=== PATIENT | female | born 1960 | race Caucasian/White ===

== ENCOUNTER 2018-06-13 06:49 | Emergency (ER) | payer OTHER, SELFPAY ==
[2018-06-13 06:55] VITALS: BP 155/77; PULSE 100; RESP 16; TEMP 37; O2SAT 93
--- NOTE | 2018-06-13 07:14 | W.ED.GENAD ---
Discharge Plan Disposition Patient Disposition: HOME Condition: Good Discharge Details Chief Complaint: Orthopedic Clinical Impression: Strain of left biceps Primary Care Provider: Tonio Harris ED Provider: Ryan Thomas Home Meds and New Rx's Prescriptions: Continue multivitamin [Daily Multi-Vitamin] 1 EACH tablet 1 ea PO DAILY Qty: 1 RF: 0 cyanocobalamin (vitamin B-12) [Vitamin B-12] 50 MCG tablet 50 mcg PO DAILY RF: 0 cholecalciferol (vitamin D3) [Vitamin D3] 400 UNIT tablet 400 unit PO DAILY Qty: 1 RF: 0 ascorbic acid (vitamin C) [Vitamin C] 500 MG tablet 500 mg PO BID Qty: 1 RF: 0 acetaminophen [Tylenol] 325 MG tablet 325 mg PO PRN RF: 0 naproxen sodium [Aleve] 220 MG tablet 220 mg PO PRN RF: 0 varenicline [Chantix Continuing Month Box] 1 MG tablet 1 mg PO BID Qty: 60 RF: 2 varenicline [Chantix] 0.5 MG tablet 1 mg PO BID Qty: 42 RF: 0 albuterol sulfate [ProAir HFA] 8.5 GM HFA aerosol inhaler 1 - 2 puff Inhalation Q4H PRN Qty: 1 RF: 2 Discharge Instructions Instructions: Muscle Strain (ED) Additional Instructions: Rest your arm for the next few days. Continue Aleve as before. May take Tylenol 1 g every 6 hours. Use some heat. Follow-up with primary care on Thursday before returning to work if not better. Return to ED for increasing pain, numbness, weakness. Stand Alone Forms: Work Release Referrals: Tonio Harris [Primary Care Provider] - Medical Decision Making Patient appears to have a strain of the left bicep. I do not think she has tendon rupture. She has no bony injury. She only has pain with active range of motion while flexing the elbow against resistance or attempting to bring her arm upwards or backwards. She does not have tenderness anywhere. She is neurovascularly intact distally. She has the ability to flex against resistance with decent strength. I do not think x-rays are warranted. We will give her a few days off from work to rest her arm. Continue Aleve twice a day. Add Tylenol every 6 hours. Follow-up with primary care Thursday prior to going back to work if not better. Return to ED for any worsening pain, numbness, weakness. HPI General Mode of arrival: ambulatory. Date/Time Provider Initiated Documentation: 06/13/18 07:03. Limitations to Documentation: no limitations. Information obtained by: patient. HPI Narrative: Patient is a [id number] female who presents with left arm pain that she developed after shoveling snow a couple of days ago. Does not really bother her a lot depending on what position her arm is in. However, trying to lift things or raise her arm up causes pain in the bicep/elbow area. She has no numbness or tingling distally. She has no chest pain or shortness of breath. If she rests her arm in a certain position, she has no pain whatsoever. 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 Trying to fold laundry all night seems to be exacerbating her pain. She has been taking Aleve. She presents for evaluation this morning after working all night. Related Data Home Medications Medication Instructions Recorded Confirmed ascorbic acid (vitamin C) [Vitamin 500 mg PO BID #1 05/23/15 06/13/18 C] cholecalciferol (vitamin D3) 400 unit PO DAILY #1 05/23/15 06/13/18 [Vitamin D3] cyanocobalamin (vitamin B-12) 50 mcg PO DAILY 05/23/15 06/13/18 [Vitamin B-12] multivitamin [Daily Multi-Vitamin] 1 ea PO DAILY #1 05/23/15 06/13/18 acetaminophen [Tylenol] 325 mg PO PRN 11/21/16 06/13/18 albuterol sulfate [ProAir HFA] 1 - 2 puff INHALATION Q4H PRN #1 11/21/16 06/13/18 inhaler naproxen sodium [Aleve] 220 mg PO PRN 11/21/16 06/13/18 varenicline [Chantix Continuing 1 mg PO BID #60 tab 11/21/16 Month Box] varenicline [Chantix] 1 mg PO BID #42 tab-cap 11/21/16 06/13/18 Allergies Allergy/AdvReac Type Severity Reaction Status Date / Time sulfamethoxazole Allergy Skin Rash Unverified 06/13/18 06:58 [From Bactrim] trimethoprim [From Bactrim] Allergy Skin Rash Unverified 06/13/18 06:58 General Stated Complaint: Orthopedic ZAIN: 4 Review of Systems Constitutional Denies chills, Denies fever(s) and Denies weakness ENT Denies neck pain Cardiovascular Denies chest pain, Denies chest pain at rest, Denies syncope, Denies palpitations and Denies dyspnea Respiratory Denies cough and Denies dyspnea Musculoskeletal Denies back pain, Reports myalgias, Denies arthralgias, Denies neck pain, Denies numbness and Denies tingling Neurologic Denies syncope, Denies focal weakness, Denies numbness, Denies tingling and Denies weakness Endocrine Denies palpitations PFSH Family History Mother No problems noted. Father Diabetes Sister No problems noted. Brother No problems noted. Social History Smoking/Tobacco Use Status: Current every day Surgical History Appendectomy (~1980) section Ligation of fallopian tube Exam Const General: cooperative, comfortable and no acute distress Orientation: alert and oriented x3 Skin General skin exam: no rashes or lesions noted Neuro General: alert, oriented x3, no focal motor deficits and CN's II-XI intact bilaterally Sensory Exam: no sensory deficits noted Extrem General: normal exam except as noted Left upper extremity: normal to inspection, no joint enlargement, shoulder/upper arm Details: tenderness and normal ROM, elbow/forearm Details: normal to inspection, abnormal ROM Details: with range as follows (Pain in the distal bicep/bicep belly when attempting to flex elbow or attempting to lift arm upwards or backwards. ) and distal pulses intact; no tenderness, no swelling and no ecchymosis and wrist Details: normal to inspection and normal ROM; no tenderness Course Vital Signs Temperature 98.6 F 06/13/18 06:55 Pulse 100 H 06/13/18 06:55 Respiratory Rate 16 06/13/18 06:55 Blood Pressure 155/77 H 06/13/18 06:55 Pulse Oximetry 93 L 06/13/18 06:55 Temperature 98.6 F 06/13/18 06:55 Temperature Source Skin 06/13/18 06:55 Pulse 100 H 06/13/18 06:55 Respiratory Rate 16 06/13/18 06:55 Respiratory Effort Non-Labored 06/13/18 06:55 Blood Pressure 155/77 H 06/13/18 06:55 Blood Pressure Position Sitting 06/13/18 06:55 Pulse Oximetry 93 L 06/13/18 06:55 Oxygen Delivery Method Room Air 06/13/18 06:55 Oxygen Flow Rate 0 06/13/18 06:55 Pain Level 7 06/13/18 06:55
--- NOTE | 2018-06-13 07:20 | ED.GENADUL_ITS ---
Discharge Plan Disposition Patient Disposition: HOME Condition: Good Discharge Details Chief Complaint: Orthopedic Clinical Impression: Strain of left biceps Primary Care Provider: Tonio Harris ED Provider: Ryan Thomas Home Meds and New Rx's Prescriptions: Continue multivitamin [Daily Multi-Vitamin] 1 EACH tablet 1 ea PO DAILY Qty: 1 RF: 0 cyanocobalamin (vitamin B-12) [Vitamin B-12] 50 MCG tablet 50 mcg PO DAILY RF: 0 cholecalciferol (vitamin D3) [Vitamin D3] 400 UNIT tablet 400 unit PO DAILY Qty: 1 RF: 0 ascorbic acid (vitamin C) [Vitamin C] 500 MG tablet 500 mg PO BID Qty: 1 RF: 0 acetaminophen [Tylenol] 325 MG tablet 325 mg PO PRN RF: 0 naproxen sodium [Aleve] 220 MG tablet 220 mg PO PRN RF: 0 varenicline [Chantix Continuing Month Box] 1 MG tablet 1 mg PO BID Qty: 60 RF: 2 varenicline [Chantix] 0.5 MG tablet 1 mg PO BID Qty: 42 RF: 0 albuterol sulfate [ProAir HFA] 8.5 GM HFA aerosol inhaler 1 - 2 puff Inhalation Q4H PRN Qty: 1 RF: 2 Discharge Instructions Instructions: Muscle Strain (ED) Additional Instructions: Rest your arm for the next few days. Continue Aleve as before. May take Tylenol 1 g every 6 hours. Use some heat. Follow-up with primary care on Thursday before returning to work if not better. Return to ED for increasing pain, numbness, weakness. Stand Alone Forms: Work Release Referrals: Tonio Harris [Primary Care Provider] - Medical Decision Making Patient appears to have a strain of the left bicep. I do not think she has tendon rupture. She has no bony injury. She only has pain with active range of motion while flexing the elbow against resistance or attempting to bring her arm upwards or backwards. She does not have tenderness anywhere. She is neurovascularly intact distally. She has the ability to flex against resistance with decent strength. I do not think x-rays are warranted. We will give her a few days off from work to rest her arm. Continue Aleve twice a day. Add Tylenol every 6 hours. Follow-up with primary care Thursday prior to going back to work if not better. Return to ED for any worsening pain, numbness , weakness. HPI General Mode of arrival: ambulatory . Date/Time Provider Initiated Documentation: 06/13/18 07:03 . Limitations to Documentation: no limitations . Information obtained by: patient . HPI Narrative: Patient is a [id number] female who presents with left arm pain that she developed after shoveling snow a couple of days ago. Does not really bother her a lot depending on what position her arm is in. However, trying to lift things or raise her arm up causes pain in the bicep/elbow area. She has no numbness or tingling distally. She has no chest pain or shortness of breath. If she rests her arm in a certain position, she has no pain whatsoever. 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 Trying to fold laundry all night seems to be exacerbating her pain. She has been taking Aleve. She presents for evaluation this morning after working all night. Related Data Home Medications Medication Instructions Recorded Confirmed ascorbic acid (vitamin C) [Vitamin 500 mg PO BID #1 05/23/15 06/13/18 C] cholecalciferol (vitamin D3) 400 unit PO DAILY #1 05/23/15 06/13/18 [Vitamin D3] cyanocobalamin (vitamin B-12) 50 mcg PO DAILY 05/23/15 06/13/18 [Vitamin B-12] multivitamin [Daily Multi-Vitamin] 1 ea PO DAILY #1 05/23/15 06/13/18 acetaminophen [Tylenol] 325 mg PO PRN 11/21/16 06/13/18 albuterol sulfate [ProAir HFA] 1 - 2 puff INHALATION Q4H PRN #1 11/21/16 inhaler naproxen sodium [Aleve] 220 mg PO PRN 11/21/16 06/13/18 varenicline [Chantix Continuing 1 mg PO BID #60 tab 11/21/16 Month Box] varenicline [Chantix] 1 mg PO BID #42 tab-cap 11/21/16 06/13/18 Allergies Allergy/AdvReac Type Severity Reaction Status Date / Time sulfamethoxazole Allergy Skin Rash Unverified 06/13/18 06:58 [From Bactrim] trimethoprim [From Bactrim] Allergy Skin Rash Unverified 06/13/18 06:58 General Stated Complaint: Orthopedic ZAIN: 4 Review of Systems Constitutional Denies chills, Denies fever(s) and Denies weakness ENT Denies neck pain Cardiovascular Denies chest pain, Denies chest pain at rest, Denies syncope, Denies palpitations and Denies dyspnea Respiratory Denies cough and Denies dyspnea Musculoskeletal Denies back pain, Reports myalgias, Denies arthralgias, Denies neck pain, Denies numbness and Denies tingling Neurologic Denies syncope, Denies focal weakness, Denies numbness, Denies tingling and Denies weakness Endocrine Denies palpitations PFSH Family History Mother No problems noted. Father Diabetes Sister No problems noted. Brother No problems noted. Social History Smoking/Tobacco Use Status: Current every day Surgical History Appendectomy (~1980) section Ligation of fallopian tube Exam Const General: cooperative, comfortable and no acute distress Orientation: alert and oriented x3 Skin General skin exam: no rashes or lesions noted Neuro General: alert, oriented x3, no focal motor deficits and CN's II-XI intact bilaterally Sensory Exam: no sensory deficits noted Extrem General: normal exam except as noted Left upper extremity: normal to inspection, no joint enlargement, shoulder/ upper arm Details: tenderness and normal ROM, elbow/forearm Details: normal to inspection, abnormal ROM Details: with range as follows (Pain in the distal bicep/bicep belly when attempting to flex elbow or attempting to lift arm upwards or backwards. ) and distal pulses intact; no tenderness, no swelling and no ecchymosis and wrist Details: normal to inspection and normal ROM; no tenderness Course Vital Signs Temperature 98.6 F 06/13/18 06:55 Pulse 100 H 06/13/18 06:55 Respiratory Rate 16 06/13/18 06:55 Blood Pressure 155/77 H 06/13/18 06:55 Pulse Oximetry 93 L 06/13/18 06:55 Temperature 98.6 F 06/13/18 06:55 Temperature Source Skin 06/13/18 06:55 Pulse 100 H 06/13/18 06:55 Respiratory Rate 16 06/13/18 06:55 Respiratory Effort Non-Labored 06/13/18 06:55 Blood Pressure 155/77 H 06/13/18 06:55 Blood Pressure Position Sitting 06/13/18 06:55 Pulse Oximetry 93 L 06/13/18 06:55 Oxygen Delivery Method Room Air 06/13/18 06:55 Oxygen Flow Rate 0 06/13/18 06:55 Pain Level 7 06/13/18 06:55
== END 2018-06-13 07:37 | disposition home or self-care (01) ==
PROVIDERS: Emergency Provider Emergency Medicine; PCP Family Medicine
DX: S46.212A Strain of muscle, fascia and tendon of other parts of biceps, left arm, initial encounter (principal); X50.0XXA Overexertion from strenuous movement or load, initial encounter; Y93.41 Activity, dancing
CPT/HCPCS: 99282